=== PATIENT | male | born 1990 | race Caucasian/White ===

== ENCOUNTER 2016-12-22 07:14 | Inpatient (IN) | payer OTHER ==
[~2016-12-22] VITALS: Ht 180.3 cm; Wt 90.9 kg
[2016-12-22 08:48] LABS: PLATELET COUNT 216 x10^3mcL (130-400); RED CELL DISTRIBUTION WIDTH 12.7 % (11.5-14.5)
[2016-12-22 08:56] LABS: CALCIUM 8.7 mg/dL (8.5-10.1); CARBON DIOXIDE 27.2 mmol/L (21-32); CHLORIDE SERUM 101 mmol/L (98-107); CREATININE SERUM 0.9 mg/dL (0.7-1.3); GFR1 > 60 mL/min; GLUCOSE SERUM 114 mg/dL (74-106); POTASSIUM SERUM 3.8 mmol/L (3.5-5.1); SODIUM SERUM 139 mmol/L (136-145)
[2016-12-22 09:00] LABS: ALBUMIN 3.6 g/dL (3.4-5.0); ALKALINE PHOSPHATASE 119 U/L (46-116); ALT/SGPT 59 U/L (16-63); AST/SGOT 26 U/L (15-37); BILIRUBIN TOTAL 0.7 mg/dL (0.20-1.00); LIPASE 77 IU/L (73-393); MAGNESIUM 1.8 mg/dL (1.8-2.4); TOTAL PROTEIN, SERUM 6.9 g/dL (6.4-8.2)
[2016-12-22 09:11] LABS: UA SPECIFIC GRAVITY 1.015 (1.005-1.035); microscopic required? YES; urine erythrocyte NEGATIVE (NEGATIVE)
[2016-12-22 09:53] LABS: CHOLESTEROL/HDL RATIO 3.1
[2016-12-22 10:25] LABS: FREE T4 0.87 ng/dL (0.76-1.46); T4(THYROXINE) 7.6 ug/dL (4.7-13.3)
[2016-12-22 10:31] LABS: ATYPICAL LYMPH 1 %; BAND NEUTROPHIL 5 % (0-10); MONOCYTE 2 % (0-7); SEGMENTED NEUTROPHILS 90 % (37-75)
[2016-12-22 10:32] LABS: PLATELET MORPHOLOGY PLATELETS NORMAL; rbc morphology (normal/abnorm) ABNORMAL (NORMAL)
[2016-12-22 13:24] VITALS: BP 148/81
[2016-12-22 13:26] VITALS: Ht 180.3 cm; Wt 90.9 kg
[2016-12-22 13:37] LABS: AMPHETAMINE QUAL UR NONE DETECTED (NEG <=1000)
[2016-12-22 17:26] VITALS: BP 118/70
[2016-12-22 19:52] VITALS: BP 134/72
[2016-12-22 21:18] VITALS: BP 128/79
[2016-12-23 05:44] VITALS: BP 140/76
[2016-12-23 06:28] LABS: BASOPHIL % 0.2 % (0-2); CALCIUM 8.1 mg/dL (8.5-10.1); CARBON DIOXIDE 29.2 mmol/L (21-32); CHLORIDE SERUM 100 mmol/L (98-107); GFR1 > 60 mL/min; GLUCOSE SERUM 104 mg/dL (74-106); MAGNESIUM 1.9 mg/dL (1.8-2.4); PHOSPHOROUS 2.5 mg/dL (2.5-4.9); PLATELET COUNT 183 x10^3mcL (130-400); POTASSIUM SERUM 4.3 mmol/L (3.5-5.1); RED CELL DISTRIBUTION WIDTH 13.2 % (11.5-14.5); SODIUM SERUM 137 mmol/L (136-145)
[2016-12-23 10:08] VITALS: BP 120/78
[2016-12-23 10:34] LABS: T3 TOTAL 1.11 ng/mL
[2016-12-23 14:06] VITALS: BP 148/86
[2016-12-23 18:15] VITALS: BP 126/59
[2016-12-23 20:30] VITALS: BP 121/64
[2016-12-24 05:40] VITALS: BP 141/74
[2016-12-24 06:23] LABS: CALCIUM 8.1 mg/dL (8.5-10.1); CARBON DIOXIDE 27.7 mmol/L (21-32); CHLORIDE SERUM 103 mmol/L (98-107); CREATININE SERUM 0.8 mg/dL (0.7-1.3); GFR1 > 60 mL/min; GLUCOSE SERUM 89 mg/dL (74-106); MAGNESIUM 1.9 mg/dL (1.8-2.4); PHOSPHOROUS 2.4 mg/dL (2.5-4.9); POTASSIUM SERUM 3.7 mmol/L (3.5-5.1); SODIUM SERUM 138 mmol/L (136-145)
[2016-12-24 06:26] LABS: BASOPHIL % 0.3 % (0-2); PLATELET COUNT 198 x10^3mcL (130-400); RED CELL DISTRIBUTION WIDTH 13.1 % (11.5-14.5)
[2016-12-24 09:53] VITALS: BP 142/77
[2016-12-24 14:35] VITALS: BP 134/78
[2016-12-24 19:02] VITALS: BP 149/65
[2016-12-24 20:29] VITALS: BP 128/72
[2016-12-25 05:35] VITALS: BP 119/77
[2016-12-25 05:49] LABS: BASOPHIL % 0.4 % (0-2); PLATELET COUNT 260 x10^3mcL (130-400); RED CELL DISTRIBUTION WIDTH 13.1 % (11.5-14.5)
[2016-12-25 06:20] LABS: CALCIUM 8.6 mg/dL (8.5-10.1); CARBON DIOXIDE 29.7 mmol/L (21-32); CHLORIDE SERUM 104 mmol/L (98-107); CREATININE SERUM 0.7 mg/dL (0.7-1.3); GFR1 > 60 mL/min; GLUCOSE SERUM 93 mg/dL (74-106); MAGNESIUM 1.9 mg/dL (1.8-2.4); PHOSPHOROUS 3.9 mg/dL (2.5-4.9); POTASSIUM SERUM 3.8 mmol/L (3.5-5.1); SODIUM SERUM 139 mmol/L (136-145)
[2016-12-25 08:40] VITALS: BP 146/87
[2016-12-25 17:20] VITALS: BP 138/85
[2016-12-25 22:20] VITALS: BP 126/71
[2016-12-26 06:19] VITALS: BP 111/78
[2016-12-26 08:29] VITALS: BP 130/67
[2016-12-26] MEDS ORDERED: LAC PO (09:20)
[2016-12-26] MEDS ORDERED: COL100 PO (09:20)
[2016-12-26] MEDS ORDERED: AUGMENTIN1 TA1 PO (09:22)
[2016-12-26] MEDS ORDERED: APAP/HYDROCODON1 T13 PO ×2 (09:23→10:35)
[2016-12-26] MEDS ORDERED: FOL1 PO (10:17)
[2016-12-26] MEDS ORDERED: THERA TABS1 TAB PO (10:18)
[2016-12-26] MEDS ORDERED: THI100 PO (10:18)
[2016-12-26] MEDS ORDERED: IBUPROFEN800 MG PO (10:32)
[2016-12-26] MEDS ORDERED: ATI1 PO (10:36)
[2016-12-26 11:11] VITALS: BP 130/67
[2016-12-26 12:48] VITALS: BP 131/82
== END 2016-12-26 14:20 | disposition home or self-care (01) | DRG 710 ==
LOC: ED 07:14 → DU 08:44 → MU 12-24 11:21
PROVIDERS: Emergency Medicine; ADMIT Family Medicine
PROC: 0DJD4ZZ Inspection of Lower Intestinal Tract, Percutaneous Endoscopic Approach (ICD-10-PCS; principal; 2016-12-23)
PROC: 0DTJ0ZZ Resection of Appendix, Open Approach (ICD-10-PCS; principal; 2016-12-23)
DX: A41.9 Sepsis, unspecified organism (principal); N17.0 Acute kidney failure with tubular necrosis; K35.2 Acute appendicitis with generalized peritonitis; S00.31XA Abrasion of nose, initial encounter; S00.511A Abrasion of lip, initial encounter; I16.0 Hypertensive urgency; F10.20 Alcohol dependence, uncomplicated; F12.10 Cannabis abuse, uncomplicated; V80.010A Animal-rider injured by fall from or being thrown from horse in noncollision accident, initial encounter; Y93.52 Activity, horseback riding; Y92.9 Unspecified place or not applicable; Z68.28 Body mass index [BMI] 28.0-28.9, adult
CPT/HCPCS: 80307; 83880; 84439; 94150; G0480; J0330; J1885; J2175; J2250; J2270; J2405; J2543; J2704; J3010; J3490; J7030; J7120; Q0092